=== PATIENT | male | born 1955 | race Caucasian/White ===

== ENCOUNTER 2019-12-27 03:06 | Inpatient (IN) | payer OTHER ==
[~2019-12-27] VITALS: Ht 170.2 cm; Wt 90.7 kg
[2019-12-27] MEDS ORDERED: NITROGLYCERIN OINT 1GM/INCH UDPKT TD ONE (03:45)
[2019-12-27] MEDS ORDERED: ASPIRIN 81MG TABLET PO ONE (03:45)
[2019-12-27 03:48] LABS: BASOPHILS % 0.9 % (0.0-2.0); EOSINOPHILS % 7.2 % (0.0-5.0); HEMATOCRIT. 42.8 % (42.0-52.0); HEMOGLOBIN. 14.8 g/dL (14.0-18.0); LYMPHOCYTES % 34.5 % (20.0-50.0); MEAN CORPUSCULAR HEMOGLOBIN 30.2 pg (28.0-32.0); MEAN CORPUSCULAR VOLUME 87.5 fL (80.0-94.0); MEAN PLATELET VOLUME 8.7 fl (7.4-10.4); MONOCYTES % 8.3 % (2.0-8.0); NEUTROPHILS % 49.1 % (40.0-76.0); PLATELET 228 x1000/uL (130-400); RED BLOOD CELL COUNT 4.89 mill/uL (4.7-6.1); RED CELL DISTRIBUTION WIDTH 14.3 % (11.6-14.6)
[2019-12-27 03:53] LABS: CHLORIDE 107 mEq/L (98-107)
[2019-12-27] MEDS ORDERED: CLONIDINE 0.1MG TABLET PO PRN (09:15)
[2019-12-27] MEDS ORDERED: ENOXAPARIN 40MG/0.4ML SYR SUBCUT SCH (09:15)
[2019-12-27] MEDS ORDERED: ONDANSETRON HCL 4MG/2ML INJ IV PRN (09:15)
[2019-12-27] MEDS ORDERED: ACETAMINOPHEN 325MG TABLET PO PRN (09:15)
[2019-12-27] MEDS: ENOXAPARIN 30MG/0.3ML SYR SUBCUT SCH ×2 (10:06→22:36)
[2019-12-27 10:13] LABS: BASOPHILS % 0.9 % (0.0-2.0); EOSINOPHILS % 3.1 % (0.0-5.0); HEMATOCRIT. 42.6 % (42.0-52.0); HEMOGLOBIN. 14.6 g/dL (14.0-18.0); LYMPHOCYTES % 27.5 % (20.0-50.0); MEAN CORPUSCULAR HEMOGLOBIN 30.3 pg (28.0-32.0); MEAN CORPUSCULAR VOLUME 88.4 fL (80.0-94.0); MEAN PLATELET VOLUME 8.8 fl (7.4-10.4); MONOCYTES % 6.2 % (2.0-8.0); NEUTROPHILS % 62.3 % (40.0-76.0); PLATELET 223 x1000/uL (130-400); RED BLOOD CELL COUNT 4.81 mill/uL (4.7-6.1); RED CELL DISTRIBUTION WIDTH 14.3 % (11.6-14.6)
[2019-12-27 10:18] LABS: CHLORIDE 107 mEq/L (98-107)
[2019-12-27 11:45] VITALS: BP 121/72
[2019-12-27 12:00] VITALS: BP 121/72
[2019-12-27] MEDS ORDERED: METO-396 MT (13:40)
[2019-12-27] MEDS ORDERED: METF-815 MT (13:40)
[2019-12-27 16:00] VITALS: BP 102/74
[2019-12-27] MEDS: POLYVINYL ALCOHOL OPHTH DROPS 15ML EACHEYE SCH (17:56)
[2019-12-27 18:26] LABS: CREATINE KINASE 95 IU/L (39-308)
[2019-12-27 18:27] LABS: CREATINE KINASE MB FRACTION 1.4 ng/mL (0.5-3.6)
[2019-12-27 23:28] LABS: CREATINE KINASE 97 IU/L (39-308)
[2019-12-27 23:29] LABS: CREATINE KINASE MB FRACTION 1.2 ng/mL (0.5-3.6)
[2019-12-28] VITALS: BP 121/85
[2019-12-28] MEDS: POLYVINYL ALCOHOL OPHTH DROPS 15ML EACHEYE SCH ×3 (00:18→11:50)
[2019-12-28 04:00] VITALS: BP 151/76
[2019-12-28] MEDS ORDERED: DEXTROSE 50% WATER 50ML SYRINGE IV PRN (04:15)
[2019-12-28] MEDS: INSULIN LISPRO 100 UNITS/ML SUBCUT SCH ×2 (06:15→12:45)
[2019-12-28] MEDS: BLOOD SUGAR DIAGNOSTIC STRIP TEST SCH ×2 (06:16→11:49)
[2019-12-28 08:00] VITALS: BP 129/78
[2019-12-28 08:26] LABS: BASOPHILS % 0.9 % (0.0-2.0); EOSINOPHILS % 4.3 % (0.0-5.0); HEMATOCRIT. 40.6 % (42.0-52.0); LYMPHOCYTES % 33.5 % (20.0-50.0); MEAN CORPUSCULAR HEMOGLOBIN 30.2 pg (28.0-32.0); MEAN CORPUSCULAR VOLUME 87.9 fL (80.0-94.0); MEAN PLATELET VOLUME 9.2 fl (7.4-10.4); MONOCYTES % 6.7 % (2.0-8.0); NEUTROPHILS % 54.6 % (40.0-76.0); PLATELET 211 x1000/uL (130-400); RED BLOOD CELL COUNT 4.62 mill/uL (4.7-6.1); RED CELL DISTRIBUTION WIDTH 14.1 % (11.6-14.6)
[2019-12-28 08:34] LABS: CHLORIDE 106 mEq/L (98-107)
[2019-12-28 08:44] LABS: LDL CHOLESTEROL 128 mg/dL (5-100)
[2019-12-28 08:45] LABS: HDL CHOLESTEROL 35 mg/dL (40-59)
[2019-12-28] MEDS: ENOXAPARIN 30MG/0.3ML SYR SUBCUT SCH (08:58)
[2019-12-28] MEDS ORDERED: ASPIRIN 81MG TABLET PO SCH (09:00)
[2019-12-28] MEDS ORDERED: LISINOPRIL 10MG TABLET PO SCH (10:15)
[2019-12-28 12:00] VITALS: BP 153/82
[2019-12-28 14:52] VITALS: BP 153/82
[2019-12-28] MEDS ORDERED: ATORVASTATIN CALCIUM 20MG TABLET PO SCH (21:00)
== END 2019-12-28 15:35 | disposition home or self-care (01) | DRG 203 ==
LOC: ER 03:06 → 5WST 04:33 → EDBEDREQTM 04:40 → EDBEDREQ 04:40 → ENRESERV 10:19
PROVIDERS: ADMIT Internal Medicine; ATTEND Internal Medicine
DX: M94.0 Chondrocostal junction syndrome [Tietze] (principal); E11.9 Type 2 diabetes mellitus without complications; E66.9 Obesity, unspecified; I10 Essential (primary) hypertension; Z68.31 Body mass index [BMI] 31.0-31.9, adult; Z88.1 Allergy status to other antibiotic agents; Z88.8 Allergy status to other drugs, medicaments and biological substances
CPT/HCPCS: 36415; 71045; 80048; 80053; 80061; 82550; 82553; 82962; 83036; 83880; 84443; 84484; 85025; 85379; 93005; 93306; 93970; 99285; J1650; J1815